=== PATIENT | female | born 1955 | race African-American/Black ===

== ENCOUNTER 2020-01-18 12:17 | Emergency (ER) | payer OTHER, MEDICAID ==
[~2020-01-18] VITALS: Ht 154.9 cm; Wt 60.0 kg
[2020-01-18 12:22] VITALS: BP 105/75
[2020-01-18] MEDS ORDERED: ALBUTEROL (0.083%) 2.5MG/3ML NEB HHN STA ×2 (13:05→13:58)
[2020-01-18] MEDS ORDERED: PREDNISONE 20MG TABLET PO STA (13:05)
[2020-01-18] MEDS ORDERED: IPRATROPIUM BROMIDE (0.02%) 0.5MG/2.5ML NEB HHN STA ×2 (13:05→13:58)
[2020-01-18] MEDS ORDERED: IPRATROPIUM/ALBUTEROL 0.5-3(2.5)MG/3ML NEB ONE (13:58)
== END 2020-01-18 14:46 | disposition home or self-care (01) ==
LOC: ER 12:17
DX: R06.02 Shortness of breath (principal); R05 Cough; J45.909 Unspecified asthma, uncomplicated; I10 Essential (primary) hypertension
CPT/HCPCS: 71045; 94640; 99284; J7512

== ENCOUNTER 2020-03-14 15:14 | Inpatient (IN) | payer OTHER, MEDICAID ==
[~2020-03-14] VITALS: Ht 154.9 cm; Wt 57.6 kg
[2020-03-14] MEDS ORDERED: ALBUTEROL (0.083%) 2.5MG/3ML NEB HHN STA (15:22)
[2020-03-14] MEDS ORDERED: METHYLPREDNISOLONE SOD SUCC 125 MG/2 ML VIAL IV STA (15:22)
[2020-03-14] MEDS ORDERED: MAGNESIUM 2 G PREMIX 50 ML IV ONE (15:30)
[2020-03-14] MEDS ORDERED: IPRATROPIUM BROMIDE (0.02%) 0.5MG/2.5ML NEB HHN ONE (15:45)
[2020-03-14 16:24] LABS: BASOPHILS % 1.3 % (0.0-2.0); EOSINOPHILS % 7.9 % (0.0-5.0); HEMATOCRIT. 36.9 % (36.0-48.0); HEMOGLOBIN. 12.5 g/dL (12.0-16.0); LYMPHOCYTES % 16.5 % (20.0-50.0); MEAN CORPUSCULAR HEMOGLOBIN 30.7 pg (28.0-32.0); MEAN CORPUSCULAR VOLUME 90.3 fL (81.0-99.0); MEAN PLATELET VOLUME 9.1 fl (7.4-10.4); MONOCYTES % 6.6 % (2.0-8.0); NEUTROPHILS % 67.7 % (40.0-76.0); PLATELET 294 x1000/uL (130-400); RED BLOOD CELL COUNT 4.08 mill/uL (4.2-5.4)
[2020-03-14 16:29] LABS: CHLORIDE 108 mEq/L (98-107)
[2020-03-14 16:30] LABS: INR 0.9; PROTHROMBIN TIME 10.3 sec (9.6-11.0)
[2020-03-14 16:55] LABS: BG BASE EXCESS 1.5 mmol/L (-2.0-2.0); BG CARBOXYHEMOGLOBIN 0.3 % (0.5-1.5); BG DEOXYHEMOGLOBIN 0.5 % (0.0-5.0); BG FRACTION INSPIRED OXYGEN 100; BG HCO3 ACT 27.2 mmol/L (22.0-26.0); BG METHEMOGLOBIN 0.1 % (0.0-1.5); BG OXYGEN SATURATION 99.5 % (92.0-98.5); BG OXYHEMOGLOBIN 99.1 % (94.0-97.0); BG PCO2 47.1 mmHg (35.0-45.0); BG PH 7.379 (7.350-7.450); BG SAMPLE SITE RIGHT RADIAL; BG TOTAL HEMOGLOBIN 12.1 g/dL (12.0-18.0); BG VENT MODE MASK - BIPAP; BG VENT RATE 16 set
[2020-03-14 17:19] LABS: CLARITY URINE CLEAR (CLEAR); COLOR URINE YELLOW (YELLOW); KETONES URINE NEGATIVE (NEGATIVE); LEUKOCYTE ESTERASE URINE 2+ (NEGATIVE); NITRITE URINE NEGATIVE (NEGATIVE); OCCULT BLOOD URINE NEGATIVE (NEGATIVE); PH URINE 6.5 (4.5-8.0); PROTEIN URINE 1+ (NEGATIVE); SPECIFIC GRAVITY URINE 1.016 (1.005-1.030); UROBILINOGEN URINE 0.2 E.U./dL (0.2-1.0)
[2020-03-14] MEDS ORDERED: MAGNESIUM/ALUMINUM HYDROXIDE/SIMETHICONE 30ML UDC PO PRN (20:30)
[2020-03-14] MEDS ORDERED: DIPHENHYDRAMINE 50MG/ML VIAL IV PRN (20:30)
[2020-03-14] MEDS ORDERED: ONDANSETRON HCL 4MG/2ML INJ IV PRN (20:30)
[2020-03-14] MEDS ORDERED: NITROGLYCERIN 0.4MG TABLET SL SL PRN (20:30)
[2020-03-14] MEDS ORDERED: CLONIDINE 0.1MG TABLET PO PRN (20:30)
[2020-03-14] MEDS ORDERED: IPRATROPIUM/ALBUTEROL 0.5-3(2.5)MG/3ML NEB NEB PRN (20:30)
[2020-03-14] MEDS ORDERED: GUAIFENESIN 200MG/10ML SUGAR FREE UDC PO PRN (20:30)
[2020-03-14] MEDS ORDERED: DOCUSATE SODIUM 100MG CAPSULE PO PRN (20:30)
[2020-03-14] MEDS ORDERED: ACETAMINOPHEN 325MG TABLET PO PRN (20:30)
[2020-03-14] MEDS: FAMOTIDINE 20MG TABLET PO SCH (21:00)
[2020-03-14] MEDS ORDERED: LEVOFLOXACIN 500MG PREMIX 100 ML IV SCH (21:00)
[2020-03-14] MEDS: ASCORBIC ACID 500 MG TABLET PO SCH (21:00)
[2020-03-14] MEDS: KETOROLAC 15MG/ML VIAL IV PRN (22:16)
[2020-03-14 22:23] LABS: *AMPHETAMINES SCREEN URINE NEGATIVE (NEGATIVE); *BARBITURATES SCREEN URINE NEGATIVE (NEGATIVE); *BENZODIAZEPINES SCREEN URINE NEGATIVE (NEGATIVE)
[2020-03-14 22:24] LABS: *COCAINE SCREEN URINE NEGATIVE (NEGATIVE); CANNABINOID URINE SCREEN NEGATIVE (NEGATIVE); METHADONE URINE SCREEN NEGATIVE (NEGATIVE); OPIATES URINE SCREEN PRESUMTIVE POSITIVE (NEGATIVE); PHENCYCLIDINE URINE SCREEN NEGATIVE (NEGATIVE)
[2020-03-14 23:00] VITALS: BP 98/77
[2020-03-14] MEDS: METHYLPREDNISOLONE SOD SUCC 125 MG/2 ML VIAL IV SCH (23:26)
[2020-03-14] MEDS: ZOLPIDEM TARTRATE 5MG TABLET PO PRN (23:29)
[2020-03-14] MEDS ORDERED: LEVO50TA PO (23:39)
[2020-03-15] VITALS (27 sets, daily range): BP systolic 87–133; BP diastolic 54–108
[2020-03-15] MEDS: ENOXAPARIN 40MG/0.4ML SYR SUBCUT SCH ×2 (00:25→20:29)
[2020-03-15 00:29] LABS: CREATINE KINASE 154 IU/L (26-192)
[2020-03-15] MEDS: GUAIFENESIN/DM 600MG/30MG ER TAB 12HR PO SCH ×3 (00:30→20:28)
[2020-03-15] MEDS: IPRATROPIUM/ALBUTEROL 0.5-3(2.5)MG/3ML NEB HHN SCH ×6 (01:43→21:14)
[2020-03-15] MEDS ORDERED: LEVOFLOXACIN 500MG PREMIX 100 ML IV SCH (03:30)
[2020-03-15 06:53] LABS: CREATINE KINASE 139 IU/L (26-192)
[2020-03-15 06:54] LABS: CREATINE KINASE MB FRACTION 2.2 ng/mL (0.5-3.6)
[2020-03-15] MEDS: METHYLPREDNISOLONE SOD SUCC 125 MG/2 ML VIAL IV SCH ×2 (08:32→15:58)
[2020-03-15] MEDS: FAMOTIDINE 20MG TABLET PO SCH ×2 (08:32→20:28)
[2020-03-15] MEDS: ZINC SULFATE 220 MG ( 50 ) CAPSULE PO SCH (08:32)
[2020-03-15] MEDS: ASCORBIC ACID 500 MG TABLET PO SCH ×2 (08:32→20:28)
[2020-03-15] MEDS: TRAMADOL 50MG TABLET PO PRN ×5 (09:06→21:49)
[2020-03-15] MEDS: LORAZEPAM 0.5MG TABLET PO PRN ×2 (12:54→18:53)
[2020-03-15] MEDS: ZOLPIDEM TARTRATE 5MG TABLET PO PRN (20:28)
[2020-03-15] MEDS: ACETAMINOPHEN 325MG TABLET PO PRN (20:28)
[2020-03-16] VITALS (12 sets, daily range): BP systolic 91–149; BP diastolic 56–89
[2020-03-16] MEDS: IPRATROPIUM/ALBUTEROL 0.5-3(2.5)MG/3ML NEB HHN SCH ×6 (00:34→20:34)
[2020-03-16] MEDS: METHYLPREDNISOLONE SOD SUCC 125 MG/2 ML VIAL IV SCH ×4 (01:27→23:29)
[2020-03-16] MEDS ORDERED: LEVOFLOXACIN 500MG PREMIX 100 ML IV SCH (02:00)
[2020-03-16] MEDS: GUAIFENESIN/DM 600MG/30MG ER TAB 12HR PO SCH ×2 (08:17→20:41)
[2020-03-16] MEDS: ASCORBIC ACID 500 MG TABLET PO SCH ×2 (08:17→20:41)
[2020-03-16] MEDS: ZINC SULFATE 220 MG ( 50 ) CAPSULE PO SCH (08:20)
[2020-03-16] MEDS: FAMOTIDINE 20MG TABLET PO SCH ×2 (08:20→20:41)
[2020-03-16] MEDS: TRAMADOL 50MG TABLET PO PRN ×2 (08:20→20:50)
[2020-03-16] MEDS: PREGABALIN 50 MG CAPSULE PO SCH ×2 (10:29→17:08)
[2020-03-16] MEDS: CEFEPIME 1,000 MG in DEXTROSE 5% WATER 50 ML IV SCH ×2 (10:29→20:55)
[2020-03-16] MEDS: ACETAMINOPHEN 325MG TABLET PO PRN (12:51)
[2020-03-16] MEDS: ENOXAPARIN 40MG/0.4ML SYR SUBCUT SCH (20:50)
[2020-03-17] VITALS (12 sets, daily range): BP systolic 105–157; BP diastolic 54–90
[2020-03-17] MEDS: IPRATROPIUM/ALBUTEROL 0.5-3(2.5)MG/3ML NEB HHN SCH ×6 (00:27→20:50)
[2020-03-17] MEDS: CEFEPIME 1,000 MG in DEXTROSE 5% WATER 50 ML IV SCH ×2 (08:31→20:58)
[2020-03-17] MEDS: METHYLPREDNISOLONE SOD SUCC 125 MG/2 ML VIAL IV SCH (08:31)
[2020-03-17] MEDS: ASCORBIC ACID 500 MG TABLET PO SCH ×2 (08:32→20:58)
[2020-03-17] MEDS: PREGABALIN 50 MG CAPSULE PO SCH ×2 (08:32→17:32)
[2020-03-17] MEDS: ZINC SULFATE 220 MG ( 50 ) CAPSULE PO SCH (08:32)
[2020-03-17] MEDS: GUAIFENESIN/DM 600MG/30MG ER TAB 12HR PO SCH (08:32)
[2020-03-17] MEDS: FAMOTIDINE 20MG TABLET PO SCH ×2 (08:32→20:58)
[2020-03-17] MEDS ORDERED: GUAIFENESIN-DM 200MG-20MG/10ML UDC PO PRN (11:30)
[2020-03-17] MEDS: TRAMADOL 50MG TABLET PO PRN ×2 (12:08→20:59)
[2020-03-17] MEDS: LORATADINE 10MG TABLET PO SCH (12:18)
[2020-03-17] MEDS: FLUTICASONE PROPIONATE 50MCG/SPRAY BOTTLE BOTHNSTRLS SCH (15:37)
[2020-03-17] MEDS: KETOROLAC 15MG/ML VIAL IV PRN (15:45)
[2020-03-17] MEDS: PREDNISONE 20MG TABLET PO SCH (17:32)
[2020-03-17] MEDS: GUAIFENESIN 600MG ER TABLET PO SCH (20:58)
[2020-03-17] MEDS: ENOXAPARIN 40MG/0.4ML SYR SUBCUT SCH (20:59)
[2020-03-18] VITALS (12 sets, daily range): BP systolic 102–171; BP diastolic 70–92
[2020-03-18] MEDS: FLUTICASONE PROPIONATE 50MCG/SPRAY BOTTLE BOTHNSTRLS SCH ×3 (00:08→21:24)
[2020-03-18] MEDS: KETOROLAC 15MG/ML VIAL IV PRN ×4 (01:59→21:23)
[2020-03-18] MEDS: IPRATROPIUM/ALBUTEROL 0.5-3(2.5)MG/3ML NEB HHN SCH ×6 (02:31→20:20)
[2020-03-18] MEDS: FAMOTIDINE 20MG TABLET PO SCH ×2 (08:45→21:23)
[2020-03-18] MEDS: GUAIFENESIN 600MG ER TABLET PO SCH ×2 (08:45→21:23)
[2020-03-18] MEDS: ASCORBIC ACID 500 MG TABLET PO SCH ×2 (08:45→21:23)
[2020-03-18] MEDS: ZINC SULFATE 220 MG ( 50 ) CAPSULE PO SCH (08:45)
[2020-03-18] MEDS: CEFEPIME 1,000 MG in DEXTROSE 5% WATER 50 ML IV SCH ×2 (08:45→21:23)
[2020-03-18] MEDS: LORATADINE 10MG TABLET PO SCH (08:45)
[2020-03-18] MEDS: PREDNISONE 20MG TABLET PO SCH ×2 (08:46→18:30)
[2020-03-18] MEDS: PREGABALIN 50 MG CAPSULE PO SCH ×2 (08:46→18:30)
[2020-03-18] MEDS: ZOLPIDEM TARTRATE 5MG TABLET PO PRN (21:23)
[2020-03-18] MEDS: ENOXAPARIN 40MG/0.4ML SYR SUBCUT SCH (21:24)
[2020-03-19] VITALS (7 sets, daily range): BP systolic 119–169; BP diastolic 68–96
[2020-03-19] MEDS: IPRATROPIUM/ALBUTEROL 0.5-3(2.5)MG/3ML NEB HHN SCH ×3 (00:10→09:09)
[2020-03-19] MEDS: CEFEPIME 1,000 MG in DEXTROSE 5% WATER 50 ML IV SCH (09:00)
[2020-03-19] MEDS: FLUTICASONE PROPIONATE 50MCG/SPRAY BOTTLE BOTHNSTRLS SCH (09:00)
[2020-03-19] MEDS: PREGABALIN 50 MG CAPSULE PO SCH (10:20)
[2020-03-19] MEDS: ZINC SULFATE 220 MG ( 50 ) CAPSULE PO SCH (10:20)
[2020-03-19] MEDS: GUAIFENESIN 600MG ER TABLET PO SCH (10:20)
[2020-03-19] MEDS: ASCORBIC ACID 500 MG TABLET PO SCH (10:21)
[2020-03-19] MEDS: FAMOTIDINE 20MG TABLET PO SCH (10:21)
[2020-03-19] MEDS: PREDNISONE 20MG TABLET PO SCH (10:21)
[2020-03-19] MEDS: LORATADINE 10MG TABLET PO SCH (10:21)
== END 2020-03-19 11:04 | disposition home or self-care (01) | DRG 189 ==
LOC: ER 15:14 → EDBEDREQTM 20:10 → EDBEDREQ 20:10 → EDBEDREQSVC 20:10 → SUPCPDRO 20:20 → MICUSO 20:38 → 5EST 22:49
PROVIDERS: ADMIT Internal Medicine; ATTEND Internal Medicine
PROC: 5A09357 Assistance with Respiratory Ventilation, Less than 24 Consecutive Hours, Continuous Positive Airway Pressure (ICD-10-PCS; principal; 2020-03-14)
PROC: 5A09357 Assistance with Respiratory Ventilation, Less than 24 Consecutive Hours, Continuous Positive Airway Pressure (ICD-10-PCS; 2020-03-15)
PROC: 5A09357 Assistance with Respiratory Ventilation, Less than 24 Consecutive Hours, Continuous Positive Airway Pressure (ICD-10-PCS; 2020-03-17)
DX: J96.01 Acute respiratory failure with hypoxia (principal); J44.1 Chronic obstructive pulmonary disease with (acute) exacerbation; N39.0 Urinary tract infection, site not specified; J45.901 Unspecified asthma with (acute) exacerbation; J96.02 Acute respiratory failure with hypercapnia; I10 Essential (primary) hypertension; E03.9 Hypothyroidism, unspecified; M19.90 Unspecified osteoarthritis, unspecified site; G89.4 Chronic pain syndrome; Z87.01 Personal history of pneumonia (recurrent)
CPT/HCPCS: 36415; 36600; 71045; 80053; 80061; 80305; 81003; 82375; 82550; 82553; 82805; 83036; 83605; 83880; 84145; 84484; 85025; 93005; 93306; 93970; 94640; 96365; 99291; J0692; J1650; J1885; J1956; J2405; J2930; J3475; J7060; J7512

== ENCOUNTER 2020-04-10 03:48 | Emergency (ER) | payer OTHER, MEDICAID ==
[~2020-04-10] VITALS: Ht 152.4 cm; Wt 47.7 kg
[~2020-04-10 03:48] MED LIST: LEVO50TA PO
[2020-04-10] MEDS ORDERED: PREDNISONE 20MG TABLET PO ONE (04:00)
[2020-04-10] MEDS ORDERED: IPRATROPIUM BROMIDE (0.02%) 0.5MG/2.5ML NEB HHN STA (07:51)
[2020-04-10] MEDS ORDERED: ALBUTEROL (0.083%) 2.5MG/3ML NEB HHN STA (07:51)
[2020-04-10 08:46] LABS: BASOPHILS % 0.5 % (0.0-2.0); CHLORIDE 106 mEq/L (98-107); EOSINOPHILS % 4.2 % (0.0-5.0); HEMATOCRIT. 38.8 % (36.0-48.0); HEMOGLOBIN. 13.1 g/dL (12.0-16.0); LYMPHOCYTES % 8.5 % (20.0-50.0); MEAN CORPUSCULAR HEMOGLOBIN 31.1 pg (28.0-32.0); MEAN CORPUSCULAR VOLUME 92.1 fL (81.0-99.0); MEAN PLATELET VOLUME 10.5 fl (7.4-10.4); MONOCYTES % 2.6 % (2.0-8.0); NEUTROPHILS % 84.2 % (40.0-76.0); PLATELET 248 x1000/uL (130-400); RED BLOOD CELL COUNT 4.22 mill/uL (4.2-5.4); RED CELL DISTRIBUTION WIDTH 14.8 % (11.6-14.6)
[2020-04-10 10:00] VITALS: BP 98/62
== END 2020-04-10 10:14 | disposition home or self-care (01) ==
LOC: ER 03:48
DX: J44.1 Chronic obstructive pulmonary disease with (acute) exacerbation (principal); R06.03 Acute respiratory distress; I11.0 Hypertensive heart disease with heart failure; I50.9 Heart failure, unspecified; Z87.891 Personal history of nicotine dependence
CPT/HCPCS: 36415; 71045; 80053; 84484; 85025; 93005; 94640; 99285; J7512

== ENCOUNTER 2020-05-14 20:58 | Inpatient (IN) | payer OTHER, MEDICAID ==
[~2020-05-14] VITALS: Ht 154.9 cm; Wt 54.4 kg
[2020-05-14] MEDS ORDERED: METHYLPREDNISOLONE SOD SUCC 125 MG/2 ML VIAL IV STA (21:20)
[2020-05-14] MEDS ORDERED: IPRATROPIUM BROMIDE (0.02%) 0.5MG/2.5ML NEB HHN STA (21:20)
[2020-05-14] MEDS ORDERED: ALBUTEROL (0.083%) 2.5MG/3ML NEB HHN STA ×2 (21:20→23:09)
[2020-05-14] MEDS ORDERED: MAGNESIUM 2 G PREMIX 50 ML IV ONE (21:30)
[2020-05-14 21:52] LABS: BASOPHILS % 3.7 % (0.0-2.0); EOSINOPHILS % 11.8 % (0.0-5.0); HEMATOCRIT. 42.7 % (36.0-48.0); LYMPHOCYTES % 40.6 % (20.0-50.0); MEAN CORPUSCULAR VOLUME 91.1 fL (81.0-99.0); MEAN PLATELET VOLUME 8.7 fl (7.4-10.4); MONOCYTES % 5.2 % (2.0-8.0); NEUTROPHILS % 38.7 % (40.0-76.0); PLATELET 304 x1000/uL (130-400); RED BLOOD CELL COUNT 4.68 mill/uL (4.2-5.4); RED CELL DISTRIBUTION WIDTH 14.3 % (11.6-14.6)
[2020-05-14 22:00] LABS: CHLORIDE 106 mEq/L (98-107)
[2020-05-15 02:30] VITALS: BP 126/71
[2020-05-15 04:00] VITALS: BP 135/91
[2020-05-15] MEDS ORDERED: DIPHENHYDRAMINE 50MG/ML VIAL IV PRN (07:00)
[2020-05-15] MEDS ORDERED: ACETAMINOPHEN 325MG TABLET PO PRN (07:00)
[2020-05-15] MEDS ORDERED: GUAIFENESIN 200MG/10ML SUGAR FREE UDC PO PRN (07:00)
[2020-05-15] MEDS ORDERED: HYDRALAZINE 20MG/ML VIAL IV PRN (07:00)
[2020-05-15] MEDS ORDERED: IPRATROPIUM/ALBUTEROL 0.5-3(2.5)MG/3ML NEB HHN PRN (07:00)
[2020-05-15] MEDS ORDERED: CLONIDINE 0.1MG TABLET PO PRN (07:00)
[2020-05-15] MEDS ORDERED: LORAZEPAM 2MG/ML CPJ IV PRN (07:00)
[2020-05-15] MEDS ORDERED: DOCUSATE SODIUM 100MG CAPSULE PO PRN (07:00)
[2020-05-15] MEDS ORDERED: ONDANSETRON HCL 4MG/2ML INJ IV PRN (07:00)
[2020-05-15] MEDS ORDERED: MAGNESIUM/ALUMINUM HYDROXIDE/SIMETHICONE 30ML UDC PO PRN (07:00)
[2020-05-15 08:00] VITALS: BP 135/78
[2020-05-15] MEDS: HYDROCODONE/ACETAMINOPHEN 10/325MG TABLET PO PRN ×2 (08:15→23:09)
[2020-05-15] MEDS: METHYLPREDNISOLONE SOD SUCC 125 MG/2 ML VIAL IV SCH ×3 (08:15→17:04)
[2020-05-15] MEDS: ENOXAPARIN 40MG/0.4ML SYR SUBCUT SCH (08:16)
[2020-05-15 12:00] VITALS: BP 110/60
[2020-05-15] MEDS: SODIUM CHLORIDE 0.9% INJ 3ML FLUSH IVF SCH ×2 (13:32→21:02)
[2020-05-15 16:00] VITALS: BP 107/60
[2020-05-15 16:47] LABS: CREATINE KINASE 75 IU/L (26-192)
[2020-05-15 16:49] LABS: CREATINE KINASE MB FRACTION 1.7 ng/mL (0.5-3.6)
[2020-05-15] MEDS: MONTELUKAST SODIUM 10MG TABLET PO SCH (17:04)
[2020-05-15 17:08] LABS: T4 FREE 0.74 ng/dL (0.76-1.46)
[2020-05-15] MEDS: IPRATROPIUM/ALBUTEROL 0.5-3(2.5)MG/3ML NEB HHN SCH ×2 (17:17→22:58)
[2020-05-15 20:00] VITALS: BP 129/69
[2020-05-15] MEDS: FAMOTIDINE 20MG TABLET PO SCH (23:06)
[2020-05-16] VITALS (7 sets, daily range): BP systolic 106–127; BP diastolic 61–75
[2020-05-16] MEDS: METHYLPREDNISOLONE SOD SUCC 125 MG/2 ML VIAL IV SCH ×4 (01:07→17:19)
[2020-05-16] MEDS: IPRATROPIUM/ALBUTEROL 0.5-3(2.5)MG/3ML NEB HHN SCH ×6 (01:09→20:04)
[2020-05-16] MEDS: SODIUM CHLORIDE 0.9% INJ 3ML FLUSH IVF SCH ×3 (05:37→21:25)
[2020-05-16 06:37] LABS: CHLORIDE 102 mEq/L (98-107)
[2020-05-16 06:49] LABS: CREATINE KINASE 82 IU/L (26-192)
[2020-05-16 06:53] LABS: CREATINE KINASE MB FRACTION 1.6 ng/mL (0.5-3.6)
[2020-05-16 06:57] LABS: HEMATOCRIT. 37.1 % (36.0-48.0); HEMOGLOBIN. 12.1 g/dL (12.0-16.0); MEAN CORPUSCULAR HEMOGLOBIN 29.2 pg (28.0-32.0); MEAN CORPUSCULAR VOLUME 89.4 fL (81.0-99.0); MEAN PLATELET VOLUME 9.1 fl (7.4-10.4); PLATELET 247 x1000/uL (130-400); RED BLOOD CELL COUNT 4.15 mill/uL (4.2-5.4); RED CELL DISTRIBUTION WIDTH 14.1 % (11.6-14.6)
[2020-05-16] MEDS: ENOXAPARIN 40MG/0.4ML SYR SUBCUT SCH (08:51)
[2020-05-16] MEDS: FAMOTIDINE 20MG TABLET PO SCH ×2 (08:52→21:26)
[2020-05-16] MEDS: HYDROCODONE/ACETAMINOPHEN 10/325MG TABLET PO PRN ×2 (10:02→17:20)
[2020-05-16 14:20] LABS: PLATELET ESTIMATE NORMAL
[2020-05-16] MEDS: MONTELUKAST SODIUM 10MG TABLET PO SCH (17:19)
== END 2020-05-17 00:05 | disposition short-term general hospital (02) | DRG 189 ==
LOC: ER 20:58 → 8WST 05-15 00:29 → EDBEDREQ 05-15 00:34 → ENRESERV 05-15 01:55
PROVIDERS: ADMIT Internal Medicine; ATTEND Internal Medicine
DX: J96.00 Acute respiratory failure, unspecified whether with hypoxia or hypercapnia (principal); J45.901 Unspecified asthma with (acute) exacerbation; J44.9 Chronic obstructive pulmonary disease, unspecified; I10 Essential (primary) hypertension; E03.9 Hypothyroidism, unspecified; R82.81 Pyuria; Z87.891 Personal history of nicotine dependence; Z87.01 Personal history of pneumonia (recurrent)
CPT/HCPCS: 36415; 71045; 80053; 82550; 82553; 84439; 84443; 84481; 84484; 85025; 93005; 94640; 99285; J1650; J2930; J3475